=== PATIENT | male | born 1980 | race Caucasian/White ===

== ENCOUNTER 2019-05-05 18:48 | Emergency (ER) | payer OTHER ==
[~2019-05-05] VITALS: Ht 185.4 cm; Wt 108.9 kg
--- NOTE | 2019-05-05 18:53 | ED.ADGEN ---
Adult General Chief Complaint Chief Complaint ".. It hurts when I pee.. I think maybe I got a urinary infection or something..." HPI HPI Patient is a 38 year old male who presents with above hx and dysuria. Patient denies any history of STDs. Patient denies any travel or specific ill contacts. Patient denies any history immunosuppression. Patient normally healthy. Has developed symptoms of dysuria for the past 2 days. Patient relates his or significant other also has a urinary tract infection. Review of Systems Review of Systems Constitutional: Denies fever or chills [] Eyes: Denies change in visual acuity, redness, or eye pain [] HENT: Denies nasal congestion or sore throat [] Respiratory: Denies cough or shortness of breath [] Cardiovascular: No additional information not addressed in HPI [] GI: Denies abdominal pain, nausea, vomiting, bloody stools or diarrhea [] : Complains of dysuria and hematuria [] Musculoskeletal: Denies back pain or joint pain [] Integument: Denies rash or skin lesions [] Neurologic: Denies headache, focal weakness or sensory changes [] Endocrine: Denies polyuria or polydipsia [] All other systems were reviewed and found to be within normal limits, except as documented in this note. Family History Family History Noncontributory Current Medications Current Medications Current Medications Medications (Trade) Dose Ordered Sig/Saima Start Time Stop Time Status Last Admin Dose Admin Azithromycin (Zithromax) 1,000 mg 1X ONCE 05/05/19 22:00 05/05/19 22:01 DC 05/05/19 22:09 1,000 MG Ceftriaxone Sodium (Rocephin Im) 1 gm 1X ONCE 05/05/19 22:00 05/05/19 22:01 DC 05/05/19 22:09 1 GM Metronidazole (Flagyl) 2,000 mg 1X ONCE 05/05/19 22:00 05/05/19 22:01 DC 05/05/19 22:09 2,000 MG Ondansetron HCl (Zofran Odt) 8 mg 1X ONCE 05/05/19 22:00 05/05/19 22:01 DC 05/05/19 22:09 8 MG Allergies Allergies Allergies Coded Allergies Type Severity Reaction Last Updated Verified Penicillins Allergy Unknown 05/05/19 Yes Physical Exam Physical Exam Constitutional: Well developed, well nourished, mild distress, non-toxic appearance. [] HENT: Normocephalic, atraumatic, bilateral external ears normal, oropharynx moist, no oral exudates, nose normal. [] Eyes: PERRLA, EOMI, conjunctiva normal, no discharge. [] Neck: Normal range of motion, no tenderness, supple, no stridor. [] Cardiovascular:Heart rate regular rhythm, no murmur [] Lungs & Thorax: Bilateral breath sounds equal apex with scattered wheezes on auscultation [] Abdomen: Bowel sounds normal, soft, no tenderness, no masses, no pulsatile masses. []Circumcised.. No obvious discharge Skin: Warm, dry, no erythema, no rash. Tattoos. Back: No tenderness, no CVA tenderness. [] Extremities: No tenderness, no cyanosis, no clubbing, ROM intact, no edema. [] Neurologic: Alert and oriented X 3, normal motor function, normal sensory function, no focal deficits noted. [] Psychologic: Affect anxious, judgement normal, mood normal. [] Current Patient Data Vital Signs Vital Signs Date Time Temp Pulse Resp B/P (MAP) Pulse Ox O2 Delivery O2 Flow Rate FiO2 05/05/19 18:55 98.4 84 18 96 Room Air Lab Results Laboratory Tests Test 05/05/19 18:55 Urine Collection Type Unknown Urine Color Yellow Urine Clarity Hazy Urine pH 6.5 Urine Specific [place] >=1.030 Urine Protein 30 mg/dl (NEG-TRACE) Urine Glucose (UA) Neg mg/dL (NEG) Urine Ketones (Stick) 15 mg/dL (NEG) Urine Blood Neg (NEG) Urine Nitrite Neg (NEG) Urine Bilirubin Neg (NEG) Urine Urobilinogen Dipstick 0.2 mg/dL (0.2 mg/dL) Urine Leukocyte Esterase Trace (NEG) Urine RBC Occ /HPF (0-2) Urine WBC >40 /HPF (0-4) Urine Squamous Epithelial Cells Occ /LPF Urine Bacteria Many /HPF (0-FEW) Urine Mucus Slight /LPF Urine Opiates Screen Neg (NEG) Urine Methadone Screen Neg (NEG) Urine Barbiturates Neg (NEG) Urine Phencyclidine Screen Neg (NEG) Urine Amphetamine/Methamphetamine Neg (NEG) Urine Benzodiazepines Screen Neg (NEG) Urine Cocaine Screen Neg (NEG) Urine Cannabinoids Screen Neg (NEG) Urine Ethyl Alcohol Neg (NEG) EKG EKG [] Radiology/Procedures Radiology/Procedures [] Course & Med Decision Making Course & Med Decision Making Pertinent Labs and Imaging studies reviewed. (See chart for details) Push fluids. Take Keflex 500 mg 3 times a day. Tylenol and ibuprofen for pain. Follow-up cultures. Discussed with patient and his significant other possibility that this may be presentation of an STD. Return if any concerns. [] Final Impression Final Impression 1. Urinary tract infection[] Dragon Disclaimer Dragon Disclaimer This electronic medical record was generated, in whole or in part, using a voice recognition dictation system. Dragon Disclaimer This chart was dictated in whole or in part using Voice Recognition software in a busy, high-work load, and often noisy Emergency Department environment. It may contain unintended and wholly unrecognized errors or omissions. ARVIN SNOW MD May 05, 2019 18:53
[2019-05-05 18:55] VITALS: BP 133/100
[2019-05-05 19:40] LABS: BARBITURATES NEG (NEG); BENZODIAZEPINES NEG (NEG); CANNABINOIDS NEG (NEG); COCAINE NEG (NEG); METHADONE NEG (NEG); OPIATES NEG (NEG); PHENCYCLIDINE NEG (NEG)
[2019-05-05 19:43] LABS: AMPHETAMINE/METHAMPHETAMINE NEG (NEG)
[2019-05-05 20:03] LABS: BACTERIA,URINE MANY /HPF (0-FEW); BILIRUBIN,URINE NEG (NEG); CLARITY,URINE HAZY; COLOR,URINE YELLOW; GLUCOSE,URINE NEG (NEG); NITRITE,URINE NEG (NEG); RBC,URINE OCC /HPF (0-2); SQUAMOUS EPITHELIAL CELL,UR OCC /LPF; UROBILINOGEN,URINE 0.2 mg/dL (0.2 mg/dL); WBC,URINE >40 /HPF (0-4)
[2019-05-05] MEDS ORDERED: CEPH-264 PO (21:38)
[2019-05-05] MEDS ORDERED: metroNIDAZOLE 500 MG TABLET PO ONE (22:00)
[2019-05-05] MEDS ORDERED: AZITHROMYCIN 250 MG TABLET. PO ONE (22:00)
[2019-05-05] MEDS ORDERED: cefTRIAXone IM 1 GM VIAL IM ONE (22:00)
[2019-05-05] MEDS ORDERED: ONDANSETRON ODT 4 MG TAB.RAPDIS PO ONE (22:00)
== END 2019-05-05 22:25 | disposition home or self-care (01) ==
LOC: ER 18:48
DX: N39.0 Urinary tract infection, site not specified (principal); Z87.440 Personal history of urinary (tract) infections; Z88.0 Allergy status to penicillin
CPT/HCPCS: 36415; 80307; 81001; 87086; 96372; 99284; J0456; J0696; Q0162

== ENCOUNTER 2019-07-14 18:26 | Emergency (ER) | payer OTHER ==
[~2019-07-14] VITALS: Ht 185.4 cm; Wt 108.9 kg
[~2019-07-14 18:26] MED LIST: CEPH-264 PO
[2019-07-14 18:39] VITALS: BP 148/101
--- NOTE | 2019-07-14 19:01 | PHYS DOC ---
Past History Past Medical History: UTI Past Surgical History: Other Additional Past Surgical Histo: plates in left orbital area Additional Smoking Information: " chew tobacco" " vaping " some, but not really" Alcohol Use: None Drug Use: None Adult General Chief Complaint Chief Complaint: PAIN ON URINATION HPI HPI 38 year male presents with dysuria for the last 2 days. He's had pain with urination as well as increased urinary frequency for 2 days. He had similar episode about 6 weeks ago. He states that he was seen in this emergency room and finish his antibiotic course. He was feeling better. He admits to having unprotected sex a couple of times but denies anything urethral discharge or lesions. No history of STDs. Patient denies fever or chills. He has no flank pain. He would prefer to be prophylactically treated for GC chlamydia. Review of Systems Review of Systems Constitutional: Denies fever or chills [] Eyes: Denies change in visual acuity, redness, or eye pain [] HENT: Denies nasal congestion or sore throat [] Respiratory: Denies cough or shortness of breath [] Cardiovascular: No additional information not addressed in HPI [] GI: Denies abdominal pain, nausea, vomiting, bloody stools or diarrhea [] : Dysuria, increased urinary frequency[] Musculoskeletal: Denies back pain or joint pain [] Integument: Denies rash or skin lesions [] Neurologic: Denies headache, focal weakness or sensory changes [] Endocrine: Denies polyuria or polydipsia [] All other systems were reviewed and found to be within normal limits, except as documented in this note. Allergies Allergies Allergies Coded Allergies Type Severity Reaction Last Updated Verified Penicillins Allergy Unknown 05/05/19 Yes Physical Exam Physical Exam Constitutional: Well developed, well nourished, no acute distress, non-toxic appearance. [] HENT: Normocephalic, atraumatic, bilateral external ears normal, oropharynx moist, no oral exudates, nose normal. [] Eyes: PERRLA, EOMI, conjunctiva normal, no discharge. [] Neck: Normal range of motion, no tenderness, supple, no stridor. [] Cardiovascular:Heart rate regular rhythm, no murmur [] Lungs & Thorax: Bilateral breath sounds clear to auscultation [] Abdomen: Bowel sounds normal, soft, mild suprapubic tenderness, no masses, no pulsatile masses. [] Skin: Warm, dry, no erythema, no rash. [] Back: No tenderness, no CVA tenderness. [] Extremities: No tenderness, no cyanosis, no clubbing, ROM intact, no edema. [] Neurologic: Alert and oriented X 3, normal motor function, normal sensory function, no focal deficits noted. [] Psychologic: Affect normal, judgement normal, mood normal. [] Current Patient Data Vital Signs Vital Signs Date Time Temp Pulse Resp B/P (MAP) Pulse Ox O2 Delivery O2 Flow Rate FiO2 07/14/19 18:39 98.4 90 16 97 Room Air EKG EKG [] Radiology/Procedures Radiology/Procedures [] Course & Med Decision Making Course & Med Decision Making Pertinent Labs and Imaging studies reviewed. (See chart for details) The patient's urinalysis is negative for infection. We'll go ahead and give him 250 mg of Rocephin IM and a gram of azithromycin prophylactically. He is stable for discharge at this time. [] Dragon Disclaimer Dragon Disclaimer This electronic medical record was generated, in whole or in part, using a voice recognition dictation system. Departure Departure: Impression: Primary Impression: Concern about STD in male without diagnosis Disposition: HOME, SELF-CARE Condition: STABLE Referrals: [facility] (PCP) Patient Instructions: Dysuria RACHEL RAMÍREZ DO Jul 14, 2019 19:01
[2019-07-14 19:06] LABS: BACTERIA,URINE 0 /HPF (0-FEW); BILIRUBIN,URINE NEG (NEG); CLARITY,URINE CLEAR; COLOR,URINE YELLOW; GLUCOSE,URINE NEG (NEG); NITRITE,URINE NEG (NEG); RBC,URINE 0 /HPF (0-2); SQUAMOUS EPITHELIAL CELL,UR OCC /LPF; UROBILINOGEN,URINE 1 mg/dL (0.2 mg/dL); WBC,URINE RARE /HPF (0-4)
[2019-07-14] MEDS ORDERED: cefTRIAXone IM 250 MG VIAL IM ONE (20:00)
[2019-07-14] MEDS ORDERED: AZITHROMYCIN 250 MG TABLET. PO ONE (20:00)
== END 2019-07-14 20:14 | disposition home or self-care (01) ==
LOC: ER 18:26
DX: Z20.2 Contact with and (suspected) exposure to infections with a predominantly sexual mode of transmission (principal); R30.0 Dysuria; R35.0 Frequency of micturition; F17.220 Nicotine dependence, chewing tobacco, uncomplicated; Z87.440 Personal history of urinary (tract) infections; Z88.0 Allergy status to penicillin
CPT/HCPCS: 81001; 96372; 99283; J0456; J0696